=== PATIENT | male | born 1995 | race Caucasian/White ===

== ENCOUNTER 2017-01-18 14:41 | Emergency (ER) | payer OTHER ==
[2017-01-18 14:46] VITALS: BP 123/67
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
--- NOTE | 2017-01-19 06:43 | Diag Imaging Result Document ---
PROCEDURE NAME: FACIAL BONES - 01/18/2017 FACIAL BONES, 4 VIEWS: FINDINGS: No sinus opacification. I do not identify a fracture or dislocation. IMPRESSION: No definite bony injury. If clinical suspicion persists, a facial CT is recommended.
== END 2017-01-18 18:20 | disposition left against medical advice (07) ==
LOC: P.ED 14:41
DX: M26.622 Arthralgia of left temporomandibular joint (principal); R68.84 Jaw pain; K08.89 Other specified disorders of teeth and supporting structures; Y04.2XXA Assault by strike against or bumped into by another person, initial encounter
CPT/HCPCS: 70150; 99283